=== PATIENT | male | born 1940 | race Caucasian/White ===

== ENCOUNTER 2021-07-11 05:38 | Emergency (ER) | payer BC, MEDICARE ==
[2021-07-11 05:59] VITALS: BP 122/70
[2021-07-11 06:16] LABS: RAPID STREP SCREEN Negative (Negative)
--- NOTE | 2021-07-11 07:30 | ED Physician Documentation ---
PD HPI HEENT - Stated complaint Stated Complaint: THROAT/LT EAR PX - Chief complaint Chief Complaint: Heent - History obtained from History obtained from: Patient - Additional information Additional information: The patient comes to the emergency department chief complaint of sore throat, left ear pain, and loss of sense of taste over the past 5 days. Patient states he feels like the symptoms are getting a little worse and that he did not emergently have ear discomfort but now he does. Patient denies fevers or chills. He has a mild cough. He has not had any specific sick contacts that he knows of. He states he took a COVID test at home and this was negative yesterday. Review of Systems Ten Systems: 10 systems reviewed and negative Constitutional: reports: Reviewed and negative. denies: Fever Eyes: reports: Reviewed and negative Ears: reports: Ear pain Nose: reports: Rhinorrhea / runny nose, Congestion Throat: reports: Reviewed and negative Cardiac: reports: Reviewed and negative Respiratory: reports: Cough GI: reports: Reviewed and negative : reports: Reviewed and negative Skin: reports: Reviewed and negative Musculoskeletal: reports: Reviewed and negative Neurologic: reports: Reviewed and negative Psychiatric: reports: Reviewed and negative Endocrine: reports: Reviewed and negative Immunocompromised: reports: Reviewed and negative PD PAST MEDICAL HISTORY - Past Medical History Past Medical History: Yes Cardiovascular: Hypertension, High cholesterol Respiratory: Asthma : Benign prostate hypertrophy Psych: Depression Musculoskeletal: Osteoarthritis - Past Surgical History Past Surgical History: Yes Ortho: Rotator cuff repair, Carpal Tunnel surgery - Present Medications Home Medications: Ambulatory Orders Medication Instructions Recorded Confirmed Aspirin [[place] Aspirin] 81 mg PO DAILY 07/11/21 07/11/21 Metoprolol Tartrate [Lopressor] 12.5 mg PO BID 07/11/21 07/11/21 Mirabegron [Myrbetriq] 25 mg PO DAILY 07/11/21 07/11/21 Tamsulosin [Flomax] 0.4 mg PO DAILY 07/11/21 07/11/21 buPROPion HCL [Bupropion HCl] 75 mg PO DAILY 07/11/21 07/11/21 cilostazoL [Pletal] 100 mg PO DAILY 07/11/21 07/11/21 - Allergies Allergies/Adverse Reactions: Allergies Allergy/AdvReac Type Severity Reaction Status Date / Time No Known Drug Allergies Allergy Verified 07/11/21 05:50 - Social History Does the pt smoke?: No Smoking Status: Never smoker Does the pt drink ETOH?: Yes ETOH Use: Beer Does the pt have substance abuse?: No - Immunizations Immunizations are current?: Yes PD ED PE NORMAL - Vitals Vital signs reviewed: Yes - General General: Alert and oriented X 3, No acute distress, Well developed/nourished - HEENT HEENT: Atraumatic, PERRL, EOMI, Ears normal, Moist mucous membranes, Pharynx benign - Neck Neck: Supple, no meningeal sign - Cardiac Cardiac: RRR, No murmur, Strong equal pulses - Respiratory Respiratory: No respiratory distress, Clear bilaterally - Abdomen Abdomen: Soft, Non tender, Non distended - Derm Derm: Normal color, Warm and dry, No rash - Extremities Extremities: No deformity, No edema - Neuro Neuro: Alert and oriented X 3, 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 A strep test was done from triage and is negative. Your viral panel is pending at this time. We discussed symptomatic management with decongestants and the usual indications for follow-up and return. Departure - Departure Disposition: 01 Home, Self Care Clinical Impression: Viral syndrome Condition: Stable Instructions: ED Viral Syndrome Comments: Your strep test is negative. Your symptoms are most consistent with a viral illness, which will be expected to resolve on its own. There is no evidence of an infection in either of your ears at this time. A panel that test for some of the common viruses, as well as some of the atypical bacteria, is pending at this time. You will be notified of any positive results. You may buy Sudafed [id number] and take this to try to help open up your eustachian tubes, tubes which connect with your inner ears. These can sometimes become congested if you have an upper respiratory illness and can cause trapping of fluid in her pressure behind the eardrums and cause your discomfort in the absence of specific ear infection. Sometimes a decongestant can help with this. Please follow-up with your primary care physician as needed.
[2021-07-11 08:54] LABS: B. PARAPERTUSSIS- RESP PCR PAN NOT DETECTED; B. PERTUSSIS- RESP PCR PANEL NOT DETECTED; C. PNEUMONIAE- RESP PCR PANEL NOT DETECTED; CORONAVIRUS 229E-RESP PCR NOT DETECTED; CORONAVIRUS HKU1-RESP PCR NOT DETECTED; CORONAVIRUS NL63-RESP PCR NOT DETECTED; CORONAVIRUS OC43-RESP PCR NOT DETECTED; HUMAN METAPNEUMOVIRUS NOT DETECTED; INFLUENZA A- RESP PCR PANEL NOT DETECTED; INFLUENZA B - RESP PCR PANEL NOT DETECTED; M. PNEUMONIAE- RESP PCR PANEL NOT DETECTED; PARAINFLUENZA VIRUS 1 NOT DETECTED; PARAINFLUENZA VIRUS 2 NOT DETECTED; PARAINFLUENZA VIRUS 3 NOT DETECTED; PARAINFLUENZA VIRUS 4 NOT DETECTED; RHINOVIRUS/ENTEROVIRUS NOT DETECTED; RSV- RESP PCR PANEL NOT DETECTED; SARS-CoV-2 -RESP PCR PANEL NOT DETECTED
== END 2021-07-11 07:55 | disposition home or self-care (01) ==
LOC: ED 05:38
DX: B34.9 Viral infection, unspecified (principal); I10 Essential (primary) hypertension; Z20.822 Contact with and (suspected) exposure to COVID-19
CPT/HCPCS: 87070; 87430; 87633; 99282; 99283; U0004